=== PATIENT | male | born 1965 | race Caucasian/White ===

== ENCOUNTER 2020-05-29 23:51 | Emergency (ER) | payer MEDICAID ==
[~2020-05-29] VITALS: Ht 172.7 cm; Wt 73.0 kg
[2020-05-30 00:52] LABS: HEMATOCRIT. 43.9 % (42.0-52.0); HEMOGLOBIN. 14.7 g/dL (14.0-18.0); MEAN CORPUSCULAR HEMOGLOBIN 29.1 pg (28.0-32.0); MEAN CORPUSCULAR VOLUME 86.7 fL (80.0-94.0); PLATELET 238 x1000/uL (130-400); RED BLOOD CELL COUNT 5.06 mill/uL (4.7-6.1); RED CELL DISTRIBUTION WIDTH 13.2 % (11.6-14.6)
[2020-05-30 01:02] LABS: CHLORIDE 108 mEq/L (98-107)
[2020-05-30 01:11] LABS: CREATINE KINASE 159 IU/L (39-308)
[2020-05-30 01:45] LABS: PROTHROMBIN TIME 10.1 sec (9.6-11.0)
[2020-05-30] MEDS: SODIUM CHLORIDE 0.9% 1,000 ML IV ONE (02:13)
[2020-05-30] MEDS: KETOROLAC 15MG/ML VIAL IV NR (02:15)
[2020-05-30] MEDS ORDERED: KETO10TA2 MT (02:26)
[2020-05-30] MEDS ORDERED: TAMS-11 PO (02:26)
[2020-05-30 02:30] LABS: CLARITY URINE CLEAR (CLEAR); COLOR URINE YELLOW (YELLOW); KETONES URINE 1+ (NEGATIVE); LEUKOCYTE ESTERASE URINE 1+ (NEGATIVE); NITRITE URINE NEGATIVE (NEGATIVE); OCCULT BLOOD URINE 2+ (NEGATIVE); PROTEIN URINE TRACE (NEGATIVE); SPECIFIC GRAVITY URINE 1.037 (1.005-1.030)
[2020-05-30 02:45] LABS: *AMPHETAMINES SCREEN URINE PRESUMTIVE POSITIVE (NEGATIVE); *BARBITURATES SCREEN URINE NEGATIVE (NEGATIVE)
[2020-05-30 02:46] LABS: *BENZODIAZEPINES SCREEN URINE NEGATIVE (NEGATIVE); *COCAINE SCREEN URINE NEGATIVE (NEGATIVE); METHADONE URINE SCREEN NEGATIVE (NEGATIVE); OPIATES URINE SCREEN NEGATIVE (NEGATIVE); PHENCYCLIDINE URINE SCREEN NEGATIVE (NEGATIVE)
[2020-05-30 02:47] LABS: CANNABINOID URINE SCREEN PRESUMTIVE POSITIVE (NEGATIVE)
[2020-05-30 05:00] VITALS: BP 135/74
[2020-05-30 05:05] LABS: PLATELET ESTIMATE NORMAL
== END 2020-05-30 05:33 | disposition home or self-care (01) ==
LOC: ER 23:51
DX: R10.30 Lower abdominal pain, unspecified (principal); R30.0 Dysuria; R11.0 Nausea; R82.90 Unspecified abnormal findings in urine; R03.0 Elevated blood-pressure reading, without diagnosis of hypertension; F15.10 Other stimulant abuse, uncomplicated
CPT/HCPCS: 36415; 74176; 76705; 80053; 80305; 81003; 82550; 83605; 83690; 85025; 85610; 93005; 96361; 96374; 99285; J1885; J7030